=== PATIENT | female | born 1995 | race Caucasian/White ===

== ENCOUNTER 2024-09-07 01:23 | Emergency (ER) | payer OTHER ==
[~2024-09-07] VITALS: Ht 160 cm; Wt 60.3 kg
[2024-09-07] MEDS: MORPHINE SULFATE 4 MG/1 ML DISP.SYRIN IM ONE (02:18)
[2024-09-07] MEDS ORDERED: LIDOCAINE HCL 2% 20 ML VIAL ONE (02:19)
[2024-09-07] MEDS: LIDOCAINE HCL 2% 20 ML VIAL IJ ONE (02:49)
[2024-09-07] MEDS ORDERED: SULFAMETH/TRIMETH 800/160 MG TABLET ONE (02:52)
[2024-09-07] MEDS ORDERED: SULF1TAB48 PO (02:53)
[2024-09-07] MEDS: SULFAMETH/TRIMETH 800/160 MG TABLET PO ONE (02:55)
[2024-09-07 03:05] VITALS: BP 119/47; TEMP 98; O2SAT 98
== END 2024-09-07 03:05 | disposition home or self-care (01) ==
LOC: ER 01:30
DX: L02.412 Cutaneous abscess of left axilla (principal); F17.200 Nicotine dependence, unspecified, uncomplicated; Z60.2 Problems related to living alone
CPT/HCPCS: 99284; 10060; 96372; J3490; J2270; A4606; A4663

== ENCOUNTER 2024-09-09 23:37 | Emergency (ER) | payer OTHER ==
[~2024-09-09] VITALS: Ht 160 cm; Wt 60.3 kg
[~2024-09-09 23:37] MED LIST: SULF1TAB48 PO
[2024-09-10] MEDS ORDERED: SULF1TAB48 PO (00:20)
[2024-09-10] MEDS: SULFAMETH/TRIMETH 800/160 MG TABLET PO ONE (00:44)
[2024-09-10 00:48] VITALS: BP 113/69; TEMP 98.6; O2SAT 98
== END 2024-09-10 00:49 | disposition home or self-care (01) ==
LOC: ER 23:58
DX: L02.412 Cutaneous abscess of left axilla (principal); L03.112 Cellulitis of left axilla; R60.9 Edema, unspecified; F17.200 Nicotine dependence, unspecified, uncomplicated; Z60.2 Problems related to living alone
CPT/HCPCS: A4606; A4663